=== PATIENT | male | born 1935 ===

== ENCOUNTER 2022-10-19 13:34 | Outpatient (CLI) | payer MEDICARE, BC ==
[2022-10-19 19:47] LABS: BASOPHILS # (AUTO) 0.1 10^3/uL (0.0-0.1); BASOPHILS % (AUTO) 0.9 %; EOSINOPHILS % (AUTO) 0.3 %; HCT - HEMATOCRIT 45.6 % (42.0-52.0); HGB - HEMOGLOBIN 14.4 g/dL (14.0-18.0); LYMPHOCYTES # (AUTO) 1.2 10^3/uL (1.5-3.5); MEAN CORPUSCULAR HEMOGLOBIN 29.9 pg (27.0-31.0); MEAN CORPUSCULAR HGB CONC 31.6 g/dL (32.0-36.0); MEAN CORPUSCULAR VOLUME 94.8 fL (80.0-94.0); MEAN PLATELET VOLUME 10.7 fL (7.4-11.4); MONOCYTES # (AUTO) 0.7 10^3/uL (0.0-1.0); NEUTROPHILS # (AUTO) 4.6 10^3/uL (1.5-6.6); NEUTROPHILS % (AUTO) 69.6 %; PLT - PLATELET COUNT 220 10^3/uL (130-450); RED BLOOD COUNT 4.81 10^6/uL (4.70-6.10); RED CELL DISTRIBUTION WIDTH 13.1 % (12.0-15.0); WHITE BLOOD COUNT 6.7 x10^3/uL (4.8-10.8)
[2022-10-19 19:57] LABS: ALBUMIN 3.9 g/dL (3.2-5.5); ALBUMIN/GLOBULIN RATIO 1.3 (1.0-2.2); BILIRUBIN,TOTAL 1.1 mg/dL (0.2-1.0); CALCIUM 8.9 mg/dL (8.5-10.3); CREATININE 0.7 mg/dL (0.6-1.2); POTASSIUM 3.9 mmol/L (3.5-5.0); TOTAL PROTEIN 6.9 g/dL (6.7-8.2)
== END 2022-10-19 13:35 | disposition home or self-care (01) ==
LOC: LAB.S 13:34
PROVIDERS: ATTEND Dermatology
DX: Z51.81 Encounter for therapeutic drug level monitoring (principal); D47.2 Monoclonal gammopathy; Z79.899 Other long term (current) drug therapy
CPT/HCPCS: 36415; 80053; 85025

== ENCOUNTER 2022-11-09 13:44 | Emergency (ER) | payer MEDICARE, BC ==
--- NOTE | 2022-11-09 13:53 | ED Physician Documentation ---
PD HPI HEAD INJURY - Stated complaint Stated Complaint: RT EYE INJ - Chief complaint Chief Complaint: Trauma Hd/Nk - History obtained from History obtained from: Patient - History of Present Illness Mechanism of head injury: Fell Where head injury occurred: Home (He has been out for a walk and felt fine during that. He states he was coming in the house and tripped on the steps and fell forward striking the right face. No loss of consciousness. No visual change. Bruising and some superficial lacerations. Small elbow skin tear.) Timing - onset: Today Location of injury: Front (right face) Associated symptoms: No: LOC, AMS, Nausea / vomiting Contributing factors: No: Anticoagulated Similar symptoms before: Has not had sx before Review of Systems Eyes: denies: Loss of vision, Decreased vision Neurologic: denies: Focal weakness, Numbness, Altered mental status, Headache, LOC PD PAST MEDICAL HISTORY - Past Medical History Cardiovascular: None Respiratory: None Neuro: None Endocrine/Autoimmune: Other GI: Other : None Psych: Other Musculoskeletal: Other Derm: None - Past Surgical History Ortho: Knee replacement, Carpal Tunnel surgery - Present Medications Home Medications: Ambulatory Orders Medication Instructions Recorded Confirmed Aspirin [Christina] 325 mg PO DAILY 10/12/22 10/12/22 Betamethasone Aug 0.05% Cream 1 gm TOP BID 10/12/22 10/12/22 [Diprolene AF 0.05% Cream] Calcium Citrate 600 mg PO DAILY 10/12/22 10/12/22 amLODIPine [Norvasc] 5 mg PO DAILY 10/12/22 10/12/22 clindamycin HCL [Clindamycin HCl] 300 mg PO PRN PRN 10/12/22 10/12/22 glucosamine HCL [Glucosamine HCl] 1,500 mg PO DAILY 10/12/22 10/12/22 mycophenolate mofetiL 500 mg PO BID 10/12/22 10/12/22 [Mycophenolate Mofetil] - Allergies Allergies/Adverse Reactions: Allergies Allergy/AdvReac Type Severity Reaction Status Date / Time No Known Drug Allergies Allergy Verified 11/09/22 13:48 - Social History Smoking Status: Never smoker PD ED PE NORMAL - Vitals Vital signs reviewed: Yes - General General: Alert and oriented X 3, No acute distress, Well developed/nourished - HEENT HEENT: PERRL, EOMI (He has good extraocular motions without any diplopia nor eye socket pain. There is ecchymosis with swelling in the periorbital area on the right. Superficial skin lacerations in the right eye brow and right lateral periorbital.) - Neck Neck: No bony TTP - Cardiac Cardiac: RRR, No murmur - Respiratory Respiratory: Other (no chestwall tenderness. ) - Abdomen Abdomen: Soft, Non tender - Derm Derm: Normal color, Warm and dry - Extremities Extremities: Other (right lateral elbow with skin tear superficial. No effusion and full range of motion of the elbow. No bony tenderness.) - Neuro Neuro: Alert and oriented X 3, No motor deficit, No sensory deficit, Normal speech Results - Vitals Vitals: Vital Signs - 24 hr 11/09/22 11/09/22 13:48 15:02 Temperature 36.6 C Heart Rate 80 64 Respiratory 16 16 Rate Blood Pressure 150/77 H 121/74 O2 Saturation 96 100 Oxygen O2 Source Room air - Rads (name of study) head CT Relevant Findings:: Prelim report reviewed (no ICH nor acute process. ), EMP independent interpretation of test, See rad report facial CT Relevant Findings:: Prelim report reviewed (soft tissue swelling right periorbital. No fractures. ), See rad report PD Medical Decision Making - ED course Complexity details: reviewed results (no ICH nor fractures of head/face. Incidental increased density around cerebellum, likely iron deposition, per Radiologist. ), considered differential (trip and fall without preceding symptoms. Facial contusion and ecchymosis around eye. Superficial skin tears. No concussive symptoms. Still with age, he does not clear clinically from head injury guidines. Can get CT head, and also CT face due to injury around orbit/face. ), d/w patient Departure - Departure Disposition: 01 Home, Self Care Clinical Impression: Skin tear Fall from slip, trip, or stumble Qualifiers: Encounter type: initial encounter Qualified Code(s): W01.0XXA - Fall on same level from slipping, tripping and stumbling without subsequent striking against object, initial encounter Periorbital contusion of right eye Qualifiers: Encounter type: initial encounter Qualified Code(s): S05.11XA - Contusion of eyeball and orbital tissues, right eye, initial encounter Condition: Stable Record reviewed to determine appropriate education?: Yes Instructions: ED Contusion Face, ED Avulsion Dermal Comments: As discussed, you did have some incidental findings on the CAT scan and, nothing related to today's fall or trauma. There was a concern for empty sella and iron deposition in the cerebellum. Also arthritis in both temporomandibular joints. Do mention these findings to your primary care physician, Dr. Lindsey, calling for next available appointment. You do have a lot of swelling and bruising around the eye socket. Cool towels or ice to the area periodically to help reduce swelling today. The skin avulsions at the elbow and face will heal in over time. Clean with soap and water and apply ointment once or twice daily to the areas. Recheck if signs of infection. Tylenol ibuprofen as needed for pains. Discharge Date/Time: 11/09/22 15:33
[2022-11-09] MEDS ORDERED: BACITRACIN ZINC OINT 1 PACKET TOP STA (14:01)
--- NOTE | 2022-11-09 14:58 | CT Report ---
PROCEDURE: HEAD WO INDICATIONS: fall with right facial injury TECHNIQUE: Noncontrast 4.5 mm thick angled axial sections acquired from the foramen magnum to the vertex. For r adiation dose reduction, the following was used: automated exposure control, adjustment of mA and/or kV according to patient size. COMPARISON: None. FINDINGS: Image quality: Excellent. CSF spaces: Basal cisterns are patent. No extra-axial fluid collections. Ventricles are normal in size and shape. Brain: No midline shift. No intracranial masses or hemorrhage. Nicole-white matter interface is norm al. Incidental note is made of the presence of symmetric increased density in the central portions o f the cerebellum bilaterally, likely representing incidental iron deposition. Bilateral intracranial carotid calcifications. Age-related volume loss and mild small vessel ischemic change. Skull and face: Calvarium and visualized facial bones are intact, without suspicious lesions. Sinuses: Visualized sinuses and mastoids are clear. IMPRESSION: No acute intracranial process. Reviewed by: Silas Schrader MD on 11/09/2022 2:57 PM PDT Approved by: Silas Schrader MD on 11/09/2022 2:57 PM PDT Station ID: [id number]
--- NOTE | 2022-11-09 15:03 | CT Report ---
PROCEDURE: MAXILLOFACIAL WO INDICATIONS: fall with right facial injury TECHNIQUE: Noncontrast 1.5 mm thick axial images acquired from the mandible through the frontal sinuses, with co stephanie and sagittal reformatting. For radiation dose reduction, the following was used: automated ex posure control, adjustment of mA and/or kV according to patient size. COMPARISON: CT head from the same date. FINDINGS: Image quality: Excellent. Bones and teeth: Orbital gonzalez are intact. Sinus gonzalez show no fracture or deformity. Nasal bones and septum are intact. Visualized portions of the mandible demonstrate no fractures or subluxation. Zygomatic arches are intact. Pterygoid plates are intact. Visualized portions of the skull base an d auditory canals are intact. Severe bilateral TMJ degenerative arthritis. The sella is widened, pot entially representing an empty sella. Sinuses: Mild right maxillary sinus mucosal thickening. Other paranasal sinuses are clear. Mastoid ai r cells are aerated. Soft tissues: Right preorbital edema. Right globe intact. No fluid collection. No mass. No enlarged l ymph nodes. No soft tissue lacerations or debris. Vascular: Visualized vascular structures appear normal in the absence of contrast. Bony vascular fo ramina and canals are intact. IMPRESSION: 1. No evidence of displaced facial bone fracture or mandibular fracture. 2. Right preorbital swelling with intact right globe and orbit. 3. Severe bilateral TMJ degenerative arthritis. 4. Enlarged sella. Question empty sella. Reviewed by: Silas Schrader MD on 11/09/2022 3:02 PM PDT Approved by: Silas Schrader MD on 11/09/2022 3:02 PM PDT Station ID: [id number]
[2022-11-09 15:04] VITALS: BP 121/74
--- NOTE | 2022-11-09 15:12 | ED Physician Documentation ---
ED Addendum - Addendum Addendum: 11/09/22 15:11 Signed out to me by Dr. Garcia at shift change. Briefly 87-year-old gentleman had mechanical fall and has facial injuries with a significant contusion around the right eye and some skin tears but nothing that needs more formal intervention. CTs were pending at shift change and reviewed by me with radiology reads and independent interpretation. Concern for empty sella syndrome, severe bilateral TMJ arthritis and hyperdense material that is symmetric in both cerebella, probably iron deposition. These findings were discussed with the patient and his son at the bedside and follow-up with PCP was discussed. Disposition: Discharged home Condition: Stable
== END 2022-11-09 15:33 | disposition home or self-care (01) ==
LOC: ED 13:44
DX: S05.11XA Contusion of eyeball and orbital tissues, right eye, initial encounter (principal); S51.011A Laceration without foreign body of right elbow, initial encounter; W01.0XXA Fall on same level from slipping, tripping and stumbling without subsequent striking against object, initial encounter; Y92.009 Unspecified place in unspecified non-institutional (private) residence as the place of occurrence of the external cause
CPT/HCPCS: 70450; 70486; 99283; 99284; A9270

== ENCOUNTER 2023-01-11 10:25 | Outpatient (CLI) | payer MEDICARE, BC ==
--- NOTE | 2023-01-11 15:59 | DEXA Report ---
PROCEDURE: Dexa Spine and/or Hip INDICATIONS: OSTEOPOROSIS TECHNIQUE: Dual energy x-ray absorptiometry (DEXA) was performed in the regions detailed below. COMPARISON: None FINDINGS: Lumbar Spine: Bone Mineral Density 1.330 g/cm/cm,T score 0.9. Normal Left Femoral Neck: Bone Mineral Density 0.869 g/cm/cm, T score -1.5. Osteopenia Left Hip: Bone Mineral Density 0.966 g/cm/cm,T score -0.9. Normal (T score greater or equal to -1.0: NORMAL) (T score from -1.1 to -2.4: OSTEOPENIA) (T score less than or equal to -2.5 to: OSTEOPOROSIS) IMPRESSION: Left femoral neck osteopenia Patients with diagnosis of osteoporosis or osteopenia should have regular bone mineral density assess ment. For those eligible for Medicare, routine testing is allowed once every 2 years. Testing frequ ency can be increased for patients who have rapidly progressing disease or for those who are receivin g medical therapy to restore bone mass. Reviewed by: Russell Moran MD on 01/11/2023 2:57 PM [place] Approved by: Russell Moran MD on 01/11/2023 2:57 PM [place] Station ID: [id number]
== END 2023-01-11 10:26 | disposition home or self-care (01) ==
LOC: DI 10:25
PROVIDERS: ATTEND Internal Medicine
DX: M85.88 Other specified disorders of bone density and structure, other site (principal)

== ENCOUNTER 2023-03-04 09:18 | Outpatient (CLI) | payer MEDICARE, BC ==
[2023-03-04 15:06] LABS: BASOPHILS % (AUTO) 0.8 %; EOSINOPHILS % (AUTO) 0.4 %; HCT - HEMATOCRIT 46.5 % (42.0-52.0); HGB - HEMOGLOBIN 14.6 g/dL (14.0-18.0); LYMPHOCYTES # (AUTO) 0.9 10^3/uL (1.5-3.5); LYMPHOCYTES % (AUTO) 19.3 %; MEAN CORPUSCULAR HEMOGLOBIN 29.7 pg (27.0-31.0); MEAN CORPUSCULAR HGB CONC 31.4 g/dL (32.0-36.0); MEAN CORPUSCULAR VOLUME 94.7 fL (80.0-94.0); MEAN PLATELET VOLUME 10.6 fL (7.4-11.4); MONOCYTES # (AUTO) 0.7 10^3/uL (0.0-1.0); MONOCYTES % (AUTO) 13.7 %; NEUTROPHILS # (AUTO) 3.2 10^3/uL (1.5-6.6); NEUTROPHILS % (AUTO) 65.4 %; PLT - PLATELET COUNT 248 10^3/uL (130-450); RED BLOOD COUNT 4.91 10^6/uL (4.70-6.10); WHITE BLOOD COUNT 4.8 x10^3/uL (4.8-10.8)
[2023-03-04 15:51] LABS: ALBUMIN 4.3 g/dL (3.2-5.5); ALBUMIN/GLOBULIN RATIO 1.7 (1.0-2.2); ALKALINE PHOSPHATASE 85 IU/L (42-121); ALT ALANINE AMINOTRANSFERASE 16 IU/L (10-60); AST ASPARTATE AMINOTRANSFERASE 24 IU/L (10-42); BILIRUBIN,TOTAL 0.9 mg/dL (0.2-1.0); BUN - BLOOD UREA NITROGEN 15 mg/dL (6-20); CALCIUM 9.3 mg/dL (8.5-10.3); CARBON DIOXIDE - CO2 29 mmol/L (21-32); CHLORIDE 103 mmol/L (101-111); CHOL/HDL RATIO 2.1 (<5.0); CHOLESTEROL 169 mg/dL; CREATININE 0.7 mg/dL (0.6-1.3); GFR - MDRD 107 (>89); GLUCOSE 84 mg/dL (74-104); HDL CHOLESTEROL 80 mg/dL; LDL CHOLESTEROL,CALCULATED 76 mg/dL; SODIUM 139 mmol/L (135-145); TOTAL PROTEIN 6.8 g/dL (6.4-8.9); TRIGLYCERIDES 67 mg/dL (48-352); VLDL CHOLESTEROL 13 mg/dL
== END 2023-03-04 09:19 | disposition home or self-care (01) ==
LOC: LAB.S 09:18
PROVIDERS: ATTEND Internal Medicine
DX: D47.2 Monoclonal gammopathy (principal); L98.9 Disorder of the skin and subcutaneous tissue, unspecified; H61.23 Impacted cerumen, bilateral; G56.20 Lesion of ulnar nerve, unspecified upper limb; L10.2 Pemphigus foliaceous; Z85.46 Personal history of malignant neoplasm of prostate; I10 Essential (primary) hypertension; Z87.39 Personal history of other diseases of the musculoskeletal system and connective tissue; W19.XXXS Unspecified fall, sequela
CPT/HCPCS: 36415; 80053; 80061; 82306; 83721; 85025

== ENCOUNTER 2023-06-19 08:00 | Outpatient (CLI) | payer MEDICARE, BC ==
--- NOTE | 2023-06-19 17:16 | XRAY Report ---
PROCEDURE: Ribs w/PA Chest 3+V RT INDICATIONS: RIGHT SIDED RIB PAIN TECHNIQUE: 4 views of the ribs were acquired, along with a single view chest. COMPARISON: None. FINDINGS: Surgical changes and devices: None. Bones and chest wall: No fractures or dislocations. No suspicious bony lesions. Overlying soft tis sues appear unremarkable. Lungs and pleura: No pleural effusions or pneumothorax. Lungs appear clear. Mediastinum: Mediastinal contours appear normal. Heart size is normal. IMPRESSION: No displaced rib fracture or pneumothorax. Reviewed by: Christopher Nina MD on 06/19/2023 5:14 PM PST Approved by: Christopher Nina MD on 06/19/2023 5:14 PM PST Station ID: [id number]
== END 2023-06-19 23:59 | disposition home or self-care (01) ==
LOC: DI.S 08:00
PROVIDERS: ATTEND Registered Nurse
DX: R07.81 Pleurodynia (principal)

== ENCOUNTER 2023-07-17 11:33 | Outpatient (CLI) | payer MEDICARE, BC ==
[2023-07-17] MEDS ORDERED: IOVERSOL 320 100 ML VIAL IVP ONE (11:44)
[2023-07-17] MEDS ORDERED: DIATRIZOATE MEGLU/DIATRIZO SOD 30 ML BOTTLE PO ONE (11:44)
[2023-07-17 12:20] LABS: CREATININE 0.7 mg/dL (0.6-1.3)
--- NOTE | 2023-07-17 14:50 | CT Report ---
PROCEDURE: Abdomen/Pelvis W INDICATIONS: RUQ PAIN, ABN CHEST RAD CONTRAST: Optiray 320- 100ml TECHNIQUE: After the administration of intravenous contrast, a CT scan of the abdomen and pelvis was performed. Images were recorded and evaluated at appropriate window settings. Reformats: coronal and sagittal. F or radiation dose reduction, the following was used: automated exposure control, adjustment of mA and /or kV according to patient size. COMPARISON: None. FINDINGS: Image quality: Diagnostic. Lower chest: Elevated right hemidiaphragm. Liver: Subcentimeter hypoattenuating liver lesions in segment 3, probably cysts. Gallbladder and biliary tree: No radiopaque stones or wall thickening. No biliary dilation. Spleen: No splenomegaly. Pancreas: No pancreatic ductal dilation. Adrenals: No adrenal nodule. Kidneys and ureters: No hydronephrosis. No renal cystic lesion which requires follow up. No solid mas s. Stomach, bowel and peritoneum: No bowel distension. No pathologic free fluid. Normal appendix. Large colonic stool load. Colonic interposition between the liver and hemidiaphragm. Lymph nodes: No central or retroperitoneal adenopathy. Vessels: No infrarenal aortic aneurysm. PELVIS Reproductive organs: Prostate fiducial markers. Bladder: No abnormal wall thickening, accounting for underdistention. Pelvic lymph nodes: No pelvic adenopathy by size criteria. Bones: No aggressive osseous abnormality. Convex left scoliosis, centered at L2. Other: No significant ventral or inguinal hernia. IMPRESSION: Colonic interposition between the liver and hemidiaphragm, which can cause right upper quadrant pain in select population. Large colonic stool load. Reviewed by: Anuel Andrade MD on 07/17/2023 2:49 PM PST Approved by: Anuel Andrade MD on 07/17/2023 2:49 PM PST Station ID: [id number]
--- NOTE | 2023-07-17 14:54 | CT Report ---
PROCEDURE: Chest WO INDICATIONS: RUQ PAIN, ABN CHEST RAD TECHNIQUE: A CT scan of the chest was performed. Intravenous contrast media was not administered. Images were re corded and evaluated at appropriate window settings. Reformats: axial MIP of the chest, coronal and s agittal. For radiation dose reduction, the following was used: automated exposure control, adjustment of mA and/or kV according to patient size. COMPARISON: None. FINDINGS: Image quality: Diagnostic. Chest wall and lower neck: No thyroid nodule which requires sonographic follow up. No axillary or sup raclavicular adenopathy by size. Lungs and pleura: No consolidation. No pleural effusions. No pneumothorax. A couple of sub-3 mm jay d pulmonary nodules. For instance, the nodule in the posterior left lower lobe (series 4, image 51) a nd the lateral left upper lobe (series 4, image 46). Right basilar atelectasis Mediastinum: Heart size is normal. No pericardial effusion. No large vessel abnormality. No mediastin al adenopathy by size criteria. Bones: Minimally displaced right lateral seventh rib fracture. Upper Abdomen: Elevated right hemidiaphragm. IMPRESSION: Minimally displaced right lateral seventh rib fracture. No pneumothorax. Elevated right hemidiaphragm without apparent etiology. A few solid pulmonary micronodules. Consider 12 month follow-up if this patient is at high risk for d eveloping lung cancer, per Fleischner Society guidelines. Reviewed by: Anuel Andrade MD on 07/17/2023 2:52 PM PST Approved by: Anuel Andrade MD on 07/17/2023 2:52 PM PST Station ID: [id number]
[2023-07-17] MEDS: DIATRIZOATE MEGLU/DIATRIZO SOD 30 ML BOTTLE PO ONE (18:02)
[2023-07-17] MEDS: IOVERSOL 320 100 ML VIAL IVP ONE (18:02)
== END 2023-07-17 11:34 | disposition home or self-care (01) ==
LOC: LAB 11:33
PROVIDERS: ATTEND Registered Nurse
DX: R91.8 Other nonspecific abnormal finding of lung field (principal); R10.11 Right upper quadrant pain; S22.31XA Fracture of one rib, right side, initial encounter for closed fracture; J98.6 Disorders of diaphragm; R93.5 Abnormal findings on diagnostic imaging of other abdominal regions, including retroperitoneum
CPT/HCPCS: 36415; 71250; 74177; 82565; Q9963; Q9967

== ENCOUNTER 2023-09-19 09:23 | Outpatient (CLI) | payer MEDICARE, BC | END 2023-09-19 09:24 | disposition home or self-care (01) | LOC: DI 09:23 | PROVIDERS: ATTEND Physician Assistant Medical | DX: I77.810 Thoracic aortic ectasia (principal) | CPT/HCPCS: 93307 ==

== ENCOUNTER 2023-10-09 10:16 | Outpatient (CLI) | payer MEDICARE, BC ==
[2023-10-09 15:21] LABS: BILIRUBIN,TOTAL 0.7 mg/dL (0.2-1.0); CALCIUM 8.9 mg/dL (8.5-10.3); CREATININE 0.7 mg/dL (0.6-1.3); POTASSIUM 4.6 mmol/L (3.5-4.5)
[2023-10-09 15:30] LABS: BASOPHILS # (AUTO) 0.1 10^3/uL (0.0-0.1); BASOPHILS % (AUTO) 1.1 %; EOSINOPHILS # (AUTO) 0.1 10^3/uL (0.0-0.7); EOSINOPHILS % (AUTO) 0.8 %; HCT - HEMATOCRIT 44.8 % (42.0-52.0); HGB - HEMOGLOBIN 13.9 g/dL (14.0-18.0); LYMPHOCYTES # (AUTO) 1.2 10^3/uL (1.5-3.5); MEAN CORPUSCULAR HEMOGLOBIN 30.3 pg (27.0-31.0); MEAN CORPUSCULAR VOLUME 97.6 fL (80.0-94.0); MEAN PLATELET VOLUME 10.3 fL (7.4-11.4); MONOCYTES # (AUTO) 0.9 10^3/uL (0.0-1.0); MONOCYTES % (AUTO) 13.5 %; NEUTROPHILS # (AUTO) 4.1 10^3/uL (1.5-6.6); NEUTROPHILS % (AUTO) 65.4 %; PLT - PLATELET COUNT 226 10^3/uL (130-450); RED BLOOD COUNT 4.59 10^6/uL (4.70-6.10); RED CELL DISTRIBUTION WIDTH 13.8 % (12.0-15.0); WHITE BLOOD COUNT 6.3 x10^3/uL (4.8-10.8)
== END 2023-10-09 10:17 | disposition home or self-care (01) ==
LOC: LAB.S 10:16
PROVIDERS: ATTEND Nurse Practitioner
DX: Z51.81 Encounter for therapeutic drug level monitoring (principal); Z79.899 Other long term (current) drug therapy
CPT/HCPCS: 36415; 80053; 85025